=== PATIENT | female | born 1955 | race Caucasian/White ===

== ENCOUNTER → 2023-03-24 15:16 | Outpatient (REF) | payer OTHER, SELFPAY | LOC: DHCBC MAIN 15:16 | PROVIDERS: ATTENDING PHYSICIAN Internal Medicine; FAMILY PHYSICIAN Nurse Practitioner | DX: I35.1 Nonrheumatic aortic (valve) insufficiency (principal) | CPT/HCPCS: 93306 ==

== ENCOUNTER → 2023-12-22 07:08 | Outpatient (REF) | payer OTHER, SELFPAY | LOC: HWRCS 07:08 | PROVIDERS: ATTENDING PHYSICIAN Internal Medicine | DX: R01.2 Other cardiac sounds (principal) | CPT/HCPCS: 93306 ==

== ENCOUNTER → 2024-07-22 17:18 | Outpatient (REF) | payer OTHER, SELFPAY | LOC: RAD 17:18 | PROVIDERS: ATTENDING PHYSICIAN Podiatrist Foot & Ankle Surgery; FAMILY PHYSICIAN Family Medicine | DX: M79.672 Pain in left foot (principal); M77.42 Metatarsalgia, left foot | CPT/HCPCS: 73630 ==